=== PATIENT | female | born 1985 ===

== ENCOUNTER 2020-03-20 09:18 | Inpatient (IN) | payer OTHER ==
[~2020-03-20] VITALS: Ht 160 cm; Wt 77.1 kg
[~2020-03-20 09:18] MED LIST: WELLBUTRIN XL150 M1 PO; [UNRECOGNIZED DRUG - OTHER] PO
[2020-04-18] MEDS ORDERED: PRENATAL TABLE1 EAC1 PO (13:05)
== END 2020-04-22 11:39 | DRG 788 ==
LOC: LDR 04-15 10:30 → O/R 04-19 19:55 → OB/GYN 04-19 21:13
PROVIDERS: Obstetrics & Gynecology; ADMIT Obstetrics & Gynecology Maternal & Fetal Medicine; ATTEND Obstetrics & Gynecology Maternal & Fetal Medicine
PROC: 4A0HXFZ Measurement of Products of Conception, Cardiac Rhythm, External Approach (ICD-10-PCS; 2020-04-18)
PROC: 10D00Z1 Extraction of Products of Conception, Low, Open Approach (ICD-10-PCS; principal; 2020-04-19 18:00)
DX: O82 Encounter for cesarean delivery without indication (principal); O62.1 Secondary uterine inertia; Z37.0 Single live birth; Z3A.40 40 weeks gestation of pregnancy

== ENCOUNTER → 2020-04-10 | Outpatient (CLI) | payer OTHER | END | disposition home or self-care (01) | LOC: NST 13:33 | PROVIDERS: ATTEND Obstetrics & Gynecology Maternal & Fetal Medicine | DX: Z34.83 Encounter for supervision of other normal pregnancy, third trimester (principal) ==

== ENCOUNTER 2020-04-17 08:52 | Outpatient (CLI) | payer OTHER ==
[2020-04-18] MEDS ORDERED: PRENATAL TABLE1 EAC1 PO (13:05)
== END 2020-04-17 10:17 | disposition home or self-care (01) ==
LOC: NST 08:52
PROVIDERS: ATTEND Obstetrics & Gynecology Maternal & Fetal Medicine
DX: Z34.83 Encounter for supervision of other normal pregnancy, third trimester (principal)

== ENCOUNTER 2021-10-29 23:01 | Emergency (ER) | payer OTHER ==
[~2021-10-29] VITALS: Ht 160 cm; Wt 67.1 kg
[~2021-10-29 23:01] MED LIST changes: +PRENATAL TABLE1 EAC1 PO
[2021-10-29] MEDS ORDERED: ZOFRAN8 MG (23:26)
== END 2021-10-30 10:00 | disposition home or self-care (01) ==
LOC: ER 23:01 → EMR PED 10-30 00:10 → ER 10-30 00:10
DX: O21.8 Other vomiting complicating pregnancy (principal); Z3A.12 12 weeks gestation of pregnancy

== ENCOUNTER 2022-05-01 09:15 | Inpatient (IN) | payer OTHER ==
[~2022-05-01] VITALS: Ht 160 cm; Wt 3.2 kg
[~2022-05-01 09:15] MED LIST changes: +ZOFRAN8 MG
[2022-05-01] MEDS ORDERED: PRENATAL PO (11:11)
[2022-05-07] MEDS ORDERED: IRON325 MG PO (06:47)
[2022-05-07] MEDS ORDERED: BUPROPION XL150 MG (11:13)
[2022-05-07] MEDS ORDERED: VALACYCLOVIR500 MG (11:14)
[2022-05-07] MEDS ORDERED: PRENATAL + DHA1 EAC1 (11:14)
== END 2022-05-11 14:39 | disposition home or self-care (01) | DRG 788 ==
LOC: OB/GYN 05-07 06:11 → O/R 05-07 06:11 → OB/GYN 05-07 09:15
PROVIDERS: ADMIT Obstetrics & Gynecology Maternal & Fetal Medicine; ATTEND Obstetrics & Gynecology Maternal & Fetal Medicine
PROC: 0DNW0ZZ Release Peritoneum, Open Approach (ICD-10-PCS; 2022-05-07)
PROC: 4A1HXCZ Monitoring of Products of Conception, Cardiac Rate, External Approach (ICD-10-PCS; 2022-05-07)
PROC: 10D00Z1 Extraction of Products of Conception, Low, Open Approach (ICD-10-PCS; principal; 2022-05-07 14:00)
DX: O34.211 Maternal care for low transverse scar from previous cesarean delivery (principal); O99.892 Other specified diseases and conditions complicating childbirth; N73.6 Female pelvic peritoneal adhesions (postinfective); Z3A.39 39 weeks gestation of pregnancy; Z37.0 Single live birth; Z20.822 Contact with and (suspected) exposure to COVID-19

== ENCOUNTER 2022-05-31 19:07 | Emergency (ER) | payer OTHER ==
[~2022-05-31] VITALS: Ht 160 cm; Wt 69.4 kg
[~2022-05-31 19:07] MED LIST changes: +BUPROPION XL150 MG; +IRON325 MG PO; +PRENATAL + DHA1 EAC1; +PRENATAL PO; +VALACYCLOVIR500 MG
== END 2022-06-01 01:45 | disposition home or self-care (01) ==
LOC: ER 19:07
DX: O72.1 Other immediate postpartum hemorrhage (principal)

== ENCOUNTER 2022-06-24 11:14 | Outpatient (CLI) | payer OTHER | END 2022-06-24 15:00 | disposition home or self-care (01) | LOC: SONOGRAMA 11:14 | PROVIDERS: ATTEND Obstetrics & Gynecology | DX: K42.0 Umbilical hernia with obstruction, without gangrene (principal) ==

== ENCOUNTER 2022-06-25 07:50 | Outpatient (CLI) | payer OTHER | END 2022-06-25 07:52 | disposition home or self-care (01) | LOC: LAB 07:50 | PROVIDERS: ATTEND Radiology Diagnostic Radiology | DX: R10.2 Pelvic and perineal pain (principal) ==

== ENCOUNTER → 2022-06-25 | Outpatient (CLI) | payer OTHER | END | disposition home or self-care (01) | LOC: MRI 08:13 | PROVIDERS: ATTEND Obstetrics & Gynecology | DX: O71.7 Obstetric hematoma of pelvis (principal) | CPT/HCPCS: 72196; 74182 ==